=== PATIENT | male | born 1970 | race Caucasian/White ===

== ENCOUNTER 2021-01-29 18:19 | Emergency (ER) | payer OTHER ==
--- NOTE | ~2021-01-29 | EMS ---
[facility] [address] [place] [address] EMS Patient Care Report Name: JU MAHONEY Room #: DEP FLOR[place] Park#: [id number] Admission: 01/29/21 Attend Phys: Discharge: 01/29/21 Date of : 66 Report #: [id number] THIS REPORT FOR: //name// Report Transmitted: 02/11/2021 13:50 EMS Care Summary [place], [place]/[facility] Incident [id number] @ 01/29/2021 17:35 [address] [place] [address] Patient JU MAHONEY Male, 50 Years 1970 Patient [address] [address] [place] [address] [address] [place] [address] Patient History Human Immunodeficiency Virus Disease (HIV/AIDS),Alcohol Abuse,Disc Degenerations, Patient Allergies Penicillin allergy, Patient Medications Unknown, Chief Complaint Uncooperative Disposition Transported No Lights/Birney Dispatch Reason Overdose/Poisoning/Ingestion Transported To [facility] Narrative M36 dispatched on an overdose. M36 arrived to [place] to find [facility] and PT outside of facility. PD stated they were contacted by Augustina. PT stated "they kicked me out" as a chief complaint. PD stated "Augustina says that he [facility] [address] [place] [address] EMS Patient Care Report Name: JU MAHONEY Room #: DEP ER Xavier#: [id number] Admission: 01/29/21 Attend Phys: Discharge: 01/29/21 Date of : 66 Report #: [id number] has to go to the ER to get checked before they can allow him back into the facility." PT initially refused to get into ambulance. PT assisted with belongings and walked to ambulance. PT refused to answer medication questions. PT stated "I have full blown AIDS." PT stated "you are just fat and don't work." PT stated "you don't save lives." PT refused to have vitals taken. PT uncooperative and combative. PT initially sat on stretcher. PT secured with seatbelts. PT removed seatbelts. PT sat on bench. PT put seatbelt on himself. PT refused to answer questions. PT stated "I am gonna smoke a cigarette before I go in there." [facility] security told PT to not smoke. PT stated he would walk back to [facility]. PT eventually agreed to go inside of ER Triage to be seen. PT care and belongings transferred to ER staff and security with delays caused by PT. PT walked into ER without assistance. M36 placed back in service. Initial Vitals @17:50Pain: 0/10,GCS: 14, @18:04GCS: 14, Assessments @17:46MENTAL:Person Oriented,Event Oriented,SKIN:HEENT:LUNG SOUNDS:ABDOMEN:PELVIS//GI:EXTREMITIES:PULSE:Radial: 2+ Normal,NEURO: Impression Behavioral/psychiatric episode Procedures @17:45 ALS Assessment Response: UnchangedSucceeded Timeline 17:33,Call Received 17:33,Dispatch Notified 17:35,Dispatched 17:35,En Route 17:42,On Scene 17:43,At Patient 17:45,ALS Assessment,Response: UnchangedSucceeded, 17:50,BP: / M,PULSE: ,RR: R,SPO2: Ox,ETCO2: ,BG: ,PAIN: 0,GCS: 14, 17:55,Depart Scene 18:04,BP: / M,PULSE: ,RR: R,SPO2: Ox,ETCO2: ,BG: ,PAIN: ,GCS: 14, 18:05,At Destination 18:24,Call Closed Disclaimer v1.1 Copyright 2020 [employer] [address] [address] EMS Patient Care Report Name: JU MAHONEY Room #: DEP Xavier#: [id number] Admission: 01/29/21 Attend Phys: Discharge: 01/29/21 Date of : 66 Report #: [id number] This EMS Care Summary contains data elements from the applicable legal record (which may be displayed differently). It is designed to provide pertinent information for the following purposes: continuity of care, clinical quality, and state data reporting. The complete legal record is available to ED staff and administrators of the receiving hospital in [employer] Patient Tracker. All data is provided "as is."
== END 2021-01-29 18:27 | disposition left against medical advice (07) ==
LOC: ER 18:19
DX: Z00.8 Encounter for other general examination (principal); Z53.21 Procedure and treatment not carried out due to patient leaving prior to being seen by health care provider